=== PATIENT | female | born 1995 | race Caucasian/White ===

== ENCOUNTER 2022-02-28 18:05 | Emergency (ER) | payer OTHER ==
[2022-02-28 18:24] VITALS: BP 129/77; PULSE 83; TEMP 98.2; BMI 19.9
[2022-02-28] MEDS ORDERED: IBUPROFEN 600 MG TABLET (FP) PO ONE ×2 (19:13→19:48)
== END 2022-02-28 19:55 | disposition home or self-care (01) ==
LOC: FER 18:05
DX: S96.911A Strain of unspecified muscle and tendon at ankle and foot level, right foot, initial encounter (principal); X50.0XXA Overexertion from strenuous movement or load, initial encounter
CPT/HCPCS: 73610-TC-RT-FY; 73630-TC-RT-FY; 99283-25

== ENCOUNTER 2022-04-28 01:27 | Emergency (ER) | payer OTHER ==
[2022-04-28] MEDS ORDERED: IBUPROFEN 600 MG TABLET (FP) PO ONE (01:39)
[2022-04-28] MEDS ORDERED: LIDOCAINE 5% TOPICAL PATCH TP ONE (01:39)
[2022-04-28 01:48] VITALS: BP 120/89; PULSE 88; RESP 17; TEMP 98.3; BMI 23.6
[2022-04-28] MEDS ORDERED: LIDOCAINE PATCH REMOVAL MC SCH (22:00)
== END 2022-04-28 02:12 | disposition home or self-care (01) ==
LOC: FER 01:27
DX: S82.032A Displaced transverse fracture of left patella, initial encounter for closed fracture (principal); W01.0XXA Fall on same level from slipping, tripping and stumbling without subsequent striking against object, initial encounter
CPT/HCPCS: 73560-TC-LT-FY; 99283-25